=== PATIENT | male | born 1970 | race Caucasian/White ===

== ENCOUNTER 2020-04-11 11:44 | Inpatient (IN) | payer MEDICAID ==
[2020-04-11] VITALS (12 sets, daily range): BP systolic 87–109; BP diastolic 43–67
[~2020-04-11] VITALS: Ht 137.2 cm; Wt 46.7 kg
[2020-04-11] MEDS ORDERED: THIO10TA PO (12:15)
[2020-04-11] MEDS ORDERED: FURO20TA4 PO (12:15)
[2020-04-11] MEDS ORDERED: POTA10CA43 PO (12:15)
[2020-04-11 12:52] LABS: CREATININE 1.1 mg/dL (0.6-1.3); POTASSIUM 3.4 mmol/L (3.5-5.1)
--- NOTE | 2020-04-11 13:00 | NUR ---
MICHAEL GUTIERREZ, OF PT'BROTHER, SIGNED THE CONSENT FOR BLOOD TRANSFUSION, PT ALSO ACKNOWLEDGED THE CONSENT FOR BLOOD TRANSFUSION
[2020-04-11 13:12] LABS: BILIRUBIN,TOTAL 1.3 mg/dL (0.2-1.0); TOTAL PROTEIN, SERUM 6.6 g/dL (6.4-8.2)
--- NOTE | 2020-04-11 13:30 | NUR ---
PT HAD SEMI LOOSE LIGHT BROWN BM AT BEDSIDE COMMODE.
[2020-04-11 13:36] LABS: BASOPHILS # (AUTO) 0.1 K/uL (0.0-8.0); BASOPHILS % (AUTO) 3.5 % (0.0-2.0); EOSINOPHILS # (AUTO) 0.1 K/uL (0.0-0.7); EOSINOPHILS % (AUTO) 3.7 % (0.0-7.0); LYMPHOCYTES # (AUTO) 0.3 K/uL (20.0-40.0); MEAN CORPUSCULAR HEMOGLOBIN 15.6 uug (23.8-33.4); MEAN CORPUSCULAR HGB CONC 27 g/dL (32.5-36.3); MEAN CORPUSCULAR VOLUME 57.7 fL (73.0-96.2); MONOCYTES # (AUTO) 0.2 K/uL (2.0-10.0); MONOCYTES % (AUTO) 8.8 % (0.0-11.0); NEUTROPHILS # (AUTO) 1.4 K/uL (1.8-8.9); PLATELET COUNT (AUTO) 95 K/uL (152-348)
[2020-04-11 13:38] LABS: RED BLOOD CELL COUNT(AUTO) 2.14 MIL/uL (4.06-5.63)
[2020-04-11 13:39] LABS: HEMOGLOBIN 3.3 g/dL (12.5-16.3)
[2020-04-11 13:40] LABS: HEMATOCRIT 12.3 % (36.7-47.1)
--- NOTE | 2020-04-11 13:40 | NUR ---
PT JUST MENTIONED THAT HE HAD " LEMON SOME TIME AND BLED THROUGH MOUTH", MD NOTIFIED.
[2020-04-11] MEDS ORDERED: IV NORMAL SALINE 1000 ML BAG IV ONE (13:45)
[2020-04-11] MEDS ORDERED: CEFTRIAXONE 1 G in IV DEXTROSE 5% 50 ML IV ONE (13:45)
[2020-04-11] MEDS ORDERED: AZITHROMYCIN IV 500 MG in IV DEXTROSE 5% 250 ML IV ONE (13:45)
[2020-04-11] MEDS ORDERED: ASPIRIN 81 MG TAB.CHEW PO ONE (13:45)
[2020-04-11] MEDS ORDERED: PANTOPRAZOLE SODIUM 40 MG VIAL IV ONE (13:45)
[2020-04-11] MEDS ORDERED: AZITHROMYCIN 500MG/ D5W 250ML IVPB **ER PYXIS ONLY IV ONE (13:50)
[2020-04-11] MEDS ORDERED: CEFTRIAXONE /D5W 50ML IVPB **ER PYXIS IV ONE (13:50)
[2020-04-11] MEDS ORDERED: PANTOPRAZOLE SODIUM 40 MG VIAL ONE (13:54)
[2020-04-11 14:23] LABS: *BILIRUBIN,URIN NEGATIVE (NEGATIVE); *BLOOD, URINE 1+ (NEGATIVE); *CLARITY,URINE CLEAR (CLEAR); *COLOR,URINE YELLOW (YELLOW); *KETONES,URINE NEGATIVE (NEGATIVE); *UROBILINOGEN,URINE 0.2 E.U./dl (NORMAL); LEUKOCYTE ESTERASE ,URINE TRACE (NEGATIVE); NITRITE, URINE NEGATIVE (NEGATIVE); PH,URINE 5.5 (5.0-8.0); UGLUCOSE NEGATIVE (NEGATIVE)
--- NOTE | 2020-04-11 14:28 | NUR ---
CALLED ANIMAL IMPERSONATOR TO CALL FOR MIDLINE PLACEMENT PER MD ORDER.
--- NOTE | 2020-04-11 14:38 | NUR ---
telephone report received from Rob Garcia as stated pt. will be brought when ready.
[2020-04-11 14:52] LABS: *OCCULT BLOOD STOOL NEGATIVE (NEGATIVE)
--- NOTE | 2020-04-11 15:00 | NUR ---
transfered pt to ccu in stable condition with hospital covid 19 guidelines.
[2020-04-11] MEDS ORDERED: MORPHINE SULFATE 2 MG/1 ML DISP.SYRIN IV PRN (15:15)
[2020-04-11] MEDS ORDERED: ACETAMINOPHEN 650 MG SUPP.RECT RC PRN (15:15)
[2020-04-11] MEDS ORDERED: ONDANSETRON 4 MG/2 ML VIAL IV PRN (15:15)
--- NOTE | 2020-04-11 15:28 | NUR ---
Patient in from E.R. AAOx3-4 vitals stable no c/of pain. PIV to right hand G20 patent. Attending will be called to be notified. sbp of 107/62 hr of 102, and RR of 22. temp 97.2.
--- NOTE | 2020-04-11 15:39 | NUR ---
pt sister in law just showed a picture of this am bm with blood in it. md notified.
[2020-04-11] MEDS ORDERED: PANTOPRAZOLE SODIUM IV 80 MG in IV DEXTROSE 5% 100 ML IV ONE (16:00)
[2020-04-11] MEDS ORDERED: IV D5 1/2 NS 1000 ML 1,000 ML IV PRN (16:00)
[2020-04-11] MEDS ORDERED: Z GUARD REMEDY PASTE 57 GM TUBE TOP PRN (16:00)
[2020-04-11] MEDS ORDERED: PANTOPRAZOLE SODIUM IV 80 MG in IV DEXTROSE 5% 500 ML IV SCH (16:15)
[2020-04-11 16:22] LABS: BACTERIA,URINE FEW /HPF (NONE SEEN); RBC,URINE 0-3 /HPF (0-3); SQUAMOUS EPITHELIAL CELL,UR FEW /HPF (NONE SEEN)
--- NOTE | 2020-04-11 16:35 | NUR ---
PICC line R.N in the unit picc line insertio in progress.
[2020-04-11 16:56] LABS: BAND % (MANUAL) 2 % (0-10); NEUTROPHILS % (MANUAL) 74 % (42-75)
[2020-04-11 16:57] LABS: BASOPHILS % (MANUAL) 0 % (0-2); EOSINOPHILS % (MANUAL) 1 % (0-8); LYMPHOCYTES % (MANUAL) 17 % (20-40); MONOCYTES % (MANUAL) 6 % (2-10)
--- NOTE | 2020-04-11 17:20 | NUR ---
Picc line successfully inserted and ok to be used by Randa MEANS.
[2020-04-11] MEDS ORDERED: IV NORMAL SALINE 250 ML IV ONE (17:33)
[2020-04-11] MEDS ORDERED: IOHEXOL 350 100 ML INFUS..BTL ONE (17:33)
[2020-04-11] MEDS ORDERED: SWABABLE VALVE TRANSFER SET EA MC ONE (17:33)
[2020-04-11] MEDS: POTASSIUM CHLORIDE 10 MEQ in IV D5 1/2 NS 1000 ML 1,000 ML IV PRN (18:34)
--- NOTE | 2020-04-11 19:01 | NUR ---
As per pharmacy 1600 dose protonix not to be given.
--- NOTE | 2020-04-11 19:10 | NUR ---
Received patient in bed in supine position. He is awake, and alert and oriented. Patient is currently receiving a blood transfusion of RBCs. PICC line CLAYR. Abdul catheter draining clear yellow urine. 98-100% oxygen saturation on room air. Patient's blood pressure is low. Will address with .
[2020-04-11] MEDS ORDERED: PHENYLEPHRINE IV 100 MG in IV NORMAL SALINE 240 ML IV PRN (20:00)
--- NOTE | 2020-04-11 20:00 | NUR ---
Called Kirby Hernandez [facility] and requested an order for Phenylepherine due to the patient's systolic blood pressure <90 and MAP <60. He agreed to order of phenylepherine if needed. I also inquired about the need for additional units of blood. He ordered H&H 2 hours after completion of the transfusion of the current unit, and give 1 more unit if Hemoglobin is <7.
[2020-04-11] MEDS ORDERED: THIORIDAZINE 10 MG TABLET PO SCH (21:00)
[2020-04-11] MEDS: PANTOPRAZOLE SODIUM 40 MG VIAL IV SCH (21:23)
[2020-04-12] VITALS (29 sets, daily range): BP systolic 92–110; BP diastolic 46–63
--- NOTE | 2020-04-12 00:30 | NUR ---
First unit of blood completed @2230, no reactions noted, temperature 98.0. Hemoglobin redraw @0030 still critical @4.3g/dL. Will transfuse 1 more unit of pRBCs per physician order.
[2020-04-12 00:50] LABS: HEMATOCRIT 14.8 % (36.7-47.1); HEMOGLOBIN 4.3 g/dL (12.5-16.3)
--- NOTE | 2020-04-12 04:30 | NUR ---
Second unit of RBCs transfused, no signs of reaction, no elevated temperature. H&H will be repeated with AM labs.
[2020-04-12 06:47] LABS: BASOPHILS % (AUTO) 0.6 % (0.0-2.0); BILIRUBIN,TOTAL 2.3 mg/dL (0.2-1.0); CREATININE 0.9 mg/dL (0.6-1.3); EOSINOPHILS # (AUTO) 0.1 K/uL (0.0-0.7); EOSINOPHILS % (AUTO) 2.7 % (0.0-7.0); LYMPHOCYTES # (AUTO) 0.3 K/uL (20.0-40.0); LYMPHOCYTES % (AUTO) 10.7 % (20.5-51.5); MAGNESIUM 1.7 mg/dL (1.8-2.4); MEAN CORPUSCULAR HEMOGLOBIN 20.3 uug (23.8-33.4); MEAN CORPUSCULAR HGB CONC 30 g/dL (32.5-36.3); MEAN CORPUSCULAR VOLUME 66.9 fL (73.0-96.2); MONOCYTES # (AUTO) 0.2 K/uL (2.0-10.0); MONOCYTES % (AUTO) 6.9 % (0.0-11.0); NEUTROPHILS # (AUTO) 2.1 K/uL (1.8-8.9); NEUTROPHILS % (AUTO) 79.1 % (38.5-71.5); PHOSPHOROUS 3.1 mg/dL (2.5-4.9); PLATELET COUNT (AUTO) 70 K/uL (152-348); RED BLOOD CELL COUNT(AUTO) 2.65 MIL/uL (4.06-5.63); WHITE BLOOD COUNT (AUTO) 2.7 K/uL (3.6-10.2)
[2020-04-12 06:52] LABS: HEMATOCRIT 17.8 % (36.7-47.1); POTASSIUM 2.8 mmol/L (3.5-5.1)
[2020-04-12 06:54] LABS: HEMOGLOBIN 5.4 g/dL (12.5-16.3)
[2020-04-12 06:55] LABS: THYROID STIMULATING HORMONE 4.047 mIU/mL (0.358-3.740)
--- NOTE | 2020-04-12 07:10 | NUR ---
Received critical lab result for H&H and potassium @0655. Hemoglobin 5.4, hematocrit 17.8, Potassium 2.8. Endorsed these results to the next shift nurse. Patient remains stable. Blood pressure has remained stable in the 100s all night. Oxygen saturation 98-100 during shift. No complaints of pain, no fever.
[2020-04-12] MEDS ORDERED: POTASSIUM CHLORIDE 20 MEQ POWDER PACKET PO ONE (07:30)
[2020-04-12] MEDS: POTASSIUM CHLORIDE 50 ML IV SCH ×4 (07:50→09:57)
[2020-04-12] MEDS: PANTOPRAZOLE SODIUM 40 MG VIAL IV SCH ×2 (08:33→20:13)
[2020-04-12] MEDS ORDERED: FUROSEMIDE 20 MG TABLET PO SCH (09:00)
[2020-04-12] MEDS ORDERED: PANTOPRAZOLE SODIUM 40 MG VIAL IV SCH (09:00)
[2020-04-12] MEDS ORDERED: POTASSIUM CHLORIDE 10 MEQ TAB.PRT.SR PO SCH (09:00)
[2020-04-12] MEDS: FUROSEMIDE 20 MG/2 ML VIAL IV SCH (09:11)
[2020-04-12] MEDS: MAGNESIUM SULFATE/D5W 100 ML IV SCH ×2 (09:14→09:59)
[2020-04-12] MEDS ORDERED: LORAZEPAM 2 MG/1 ML VIAL IV PRN (11:15)
[2020-04-12] MEDS: CEFTRIAXONE 1 G in IV DEXTROSE 5% 50 ML IV SCH (12:13)
[2020-04-12] MEDS: HYDROCODONE BIT/HOMATROPINE 5 ML UDC PO PRN ×2 (12:23→21:06)
[2020-04-12] MEDS: POTASSIUM CHLORIDE 10 MEQ in IV D5 1/2 NS 1000 ML 1,000 ML IV PRN (14:58)
[2020-04-12 19:05] LABS: BAND % (MANUAL) 1 % (0-10); EOSINOPHILS % (MANUAL) 2 % (0-8); LYMPHOCYTES % (MANUAL) 6 % (20-40); MONOCYTES % (MANUAL) 3 % (2-10); NEUTROPHILS % (MANUAL) 88 % (42-75)
--- NOTE | 2020-04-12 19:30 | NUR ---
Report received patient CHUNG on COVID-19 isolation. AAO to name only, but follows commands fairly well. Assessment done. Turned and repositioned. Addendum: 04/12/20 at 2141 by ESTEFANI TRINH RN Amended: Links added.
[2020-04-13] VITALS (18 sets, daily range): BP systolic 94–109; BP diastolic 51–63
[2020-04-13 04:57] LABS: EOSINOPHILS # (AUTO) 0.1 K/uL (0.0-0.7); LYMPHOCYTES # (AUTO) 0.5 K/uL (20.0-40.0); MEAN CORPUSCULAR HEMOGLOBIN 21.9 uug (23.8-33.4); MONOCYTES # (AUTO) 0.2 K/uL (2.0-10.0); RED BLOOD CELL COUNT(AUTO) 3.23 MIL/uL (4.06-5.63)
[2020-04-13 04:59] LABS: BASOPHILS % (AUTO) 0.9 % (0.0-2.0); LYMPHOCYTES % (AUTO) 16.5 % (20.5-51.5); MEAN CORPUSCULAR HGB CONC 31 g/dL (32.5-36.3); MEAN CORPUSCULAR VOLUME 71.1 fL (73.0-96.2); MONOCYTES % (AUTO) 7.6 % (0.0-11.0); NEUTROPHILS # (AUTO) 1.9 K/uL (1.8-8.9); PLATELET COUNT (AUTO) 70 K/uL (152-348); WHITE BLOOD COUNT (AUTO) 2.7 K/uL (3.6-10.2)
[2020-04-13 05:09] LABS: BILIRUBIN,TOTAL 2.2 mg/dL (0.2-1.0); CREATININE 0.9 mg/dL (0.6-1.3); PHOSPHOROUS 2.7 mg/dL (2.5-4.9); POTASSIUM 3.2 mmol/L (3.5-5.1); TOTAL PROTEIN, SERUM 5.8 g/dL (6.4-8.2)
[2020-04-13] MEDS: HYDROCODONE BIT/HOMATROPINE 5 ML UDC PO PRN (05:29)
[2020-04-13 05:33] LABS: HEMOGLOBIN 7.1 g/dL (12.5-16.3)
--- NOTE | 2020-04-13 06:58 | NUR ---
VS stable. Slept well during the night. No acute distress. Addendum: 04/13/20 at 0659 by ESTEFANI TRINH RN Amended: Links added.
[2020-04-13] MEDS: PANTOPRAZOLE SODIUM 40 MG VIAL IV SCH ×2 (09:03→20:39)
[2020-04-13] MEDS: FUROSEMIDE 20 MG/2 ML VIAL IV SCH (09:03)
--- NOTE | 2020-04-13 09:30 | NUR ---
A call from pt's brother Mr. Jamari Morales and to be updated on his brothers care-plan.
[2020-04-13] MEDS ORDERED: POTASSIUM PHOSPHATE MM 7.5 MMOL in IV NORMAL SALINE 97.5 ML IV ONE (10:00)
[2020-04-13] MEDS: POTASSIUM CHLORIDE 10 MEQ in IV D5 1/2 NS 1000 ML 1,000 ML IV PRN (11:26)
[2020-04-13 12:22] LABS: EOSINOPHILS % (MANUAL) 3 % (0-8); LYMPHOCYTES % (MANUAL) 13 % (20-40); MONOCYTES % (MANUAL) 5 % (2-10); NEUTROPHILS % (MANUAL) 79 % (42-75)
--- NOTE | 2020-04-13 13:45 | NUR ---
Attending informed of pt's brother request.
--- NOTE | 2020-04-13 13:45 | NUR ---
A call from pt's brother Mr. Morales he was updated on pt's care plan and at this time he requested a call from attending physician, Mr. Morales was informed that attending physician will be informed of his request.
[2020-04-13] MEDS: CEFTRIAXONE 1 G in IV DEXTROSE 5% 50 ML IV SCH (14:40)
--- NOTE | 2020-04-13 18:00 | NUR ---
Nephrology services, in the unit to see and examine patient.
--- NOTE | 2020-04-13 18:15 | NUR ---
Telephone report given to Rob Houston as informed pt. will be tow picker by [facility] staff. Pt. will be going via bed, vitals stable afebrile.
--- NOTE | 2020-04-13 18:55 | NUR ---
patient taken up to room 314 by Rob Houston.
--- NOTE | 2020-04-13 20:00 | NUR ---
pt received into care, sitting up in bed, resting comfortably. Pt is alert/oriented x1 and, using the Reyna-Srinivasan measurement, has no pain or discomfort at this time. Pt has a CLARY PICC line running KcL in D5 1/2 NS at 50mL/hr. All safety, fall, and isolation precaution measures are in place. Call light and personal items are within reach at all times. Will continue to monitor and assess.
[2020-04-13] MEDS ORDERED: ACETAMINOPHEN 325 MG TABLET PO ONE (23:00)
[2020-04-13] MEDS ORDERED: diphenhydrAMINE 50 MG/1 ML VIAL IV ONE (23:00)
[2020-04-14] VITALS (16 sets, daily range): BP systolic 95–119; BP diastolic 54–70
--- NOTE | 2020-04-14 00:57 | NUR ---
Blood transfusion of RBCs started at 75mL/hr. T 98.5 BP 109/57 HR 93 RR 20 Oxygen 100% room air. Will continue to monitor and assess.
--- NOTE | 2020-04-14 01:12 | NUR ---
Monitoring of VS 15 min after beginning transfusion: T 98.3 BP 101/56 HR 89 RR 20 Oxygen 100% room air. Increased transfusion rate to 100mL/hr. Will continue to monitor and assess.
--- NOTE | 2020-04-14 01:27 | NUR ---
15 minute VS check following beginning of transfusion: T 98.0 BP 95/54 HR 88 RR 18 Oxygen 98% at room air. Increased transfusion rate to 125mL/hr. Will continue to monitor and assess.
--- NOTE | 2020-04-14 01:57 | NUR ---
30 min VS check following increase to 125mL/hr: T 97.9 BP 100/58 HR 89 RR 18 Oxygen 96% room air. Will continue to monitor and assess.
--- NOTE | 2020-04-14 02:32 | NUR ---
30 minute check: T 98.1 BP 99/54 HR 84 RR 18 Oxygen 97% room air. Will continue to monitor and assess.
--- NOTE | 2020-04-14 04:17 | NUR ---
Blood infused. Final VS: T 97.9 BP 101/57 HR 85 RR 18 Oxygen Saturation 98% at room air. Patient is stable and has no adverse side effects verbalized by patient or noticed/observed by this nurse. Will continue to monitor and assess.
--- NOTE | 2020-04-14 06:00 | NUR ---
Patient slept intermittently throughout night with no s/s of acute distress or discomfort noted or observed by this nurse. Packed RBCs were transfused successfully with no adverse side effects verbalized by patient or noted/observed by this nurse. CLARY triple lumen PICC has 2 patent lumens with KcL 10 mEq running at 50mL/hr. Fresh frozen plasma is ready to be picked up in lab and setup for transfusion is ready to be completed by next shift. VS are WNL and patient is stable. All nursing needs have been met and patient is warm, dry, and comfortable. All safety, fall, and isolation precautions remain in place. Call light and personal items are within reach at all times.
[2020-04-14 06:23] LABS: BASOPHILS # (AUTO) 0.1 K/uL (0.0-8.0); BASOPHILS % (AUTO) 2.4 % (0.0-2.0); EOSINOPHILS # (AUTO) 0.1 K/uL (0.0-0.7); EOSINOPHILS % (AUTO) 4.9 % (0.0-7.0); HEMATOCRIT 25.5 % (36.7-47.1); LYMPHOCYTES # (AUTO) 0.5 K/uL (20.0-40.0); LYMPHOCYTES % (AUTO) 22.6 % (20.5-51.5); MEAN CORPUSCULAR HEMOGLOBIN 23.4 uug (23.8-33.4); MEAN CORPUSCULAR HGB CONC 32 g/dL (32.5-36.3); MEAN CORPUSCULAR VOLUME 74.1 fL (73.0-96.2); MONOCYTES # (AUTO) 0.2 K/uL (2.0-10.0); MONOCYTES % (AUTO) 8.7 % (0.0-11.0); NEUTROPHILS # (AUTO) 1.5 K/uL (1.8-8.9); NEUTROPHILS % (AUTO) 61.4 % (38.5-71.5); PLATELET COUNT (AUTO) 68 K/uL (152-348); RED BLOOD CELL COUNT(AUTO) 3.44 MIL/uL (4.06-5.63); WHITE BLOOD COUNT (AUTO) 2.4 K/uL (3.6-10.2)
[2020-04-14 06:36] LABS: BILIRUBIN,TOTAL 1.7 mg/dL (0.2-1.0); MAGNESIUM 1.7 mg/dL (1.8-2.4); PHOSPHOROUS 3.5 mg/dL (2.5-4.9); POTASSIUM 2.9 mmol/L (3.5-5.1); TOTAL PROTEIN, SERUM 5.7 g/dL (6.4-8.2)
--- NOTE | 2020-04-14 07:45 | NUR ---
Patient in bed, awake and verbally responsive. No signs of distress noted. Afebrile. No complain of pain or discomfort. All needs attended. kept clean and comfortable.
[2020-04-14 08:47] LABS: *RHEUMATOID FACTOR SCREEN NEGATIVE (NEGATIVE)
[2020-04-14] MEDS: FOLIC ACID 1 MG TABLET PO SCH (09:02)
[2020-04-14] MEDS: PANTOPRAZOLE SODIUM 40 MG VIAL IV SCH ×2 (09:08→20:44)
[2020-04-14] MEDS: FUROSEMIDE 20 MG/2 ML VIAL IV SCH (09:20)
[2020-04-14] MEDS: POTASSIUM CHLORIDE 20 MEQ POWDER PACKET GT SCH ×3 (09:20→12:28)
[2020-04-14] MEDS: MAGNESIUM SULFATE/D5W 100 ML IV SCH ×2 (09:26→10:27)
--- NOTE | 2020-04-14 11:15 | NUR ---
FFP x 2 bags tolerated well. No ASE noted. Afebrile. Will continue to monitor.
[2020-04-14] MEDS: POTASSIUM CHLORIDE 10 MEQ in IV D5 1/2 NS 1000 ML 1,000 ML IV PRN (12:58)
[2020-04-14] MEDS: CEFTRIAXONE 1 G in IV DEXTROSE 5% 50 ML IV SCH (13:06)
--- NOTE | 2020-04-14 14:57 | NUR ---
paracentesis today was cancelled, will have schedule Paracentesis tomorrow 04/15/2020 at 0900, Dr. Juarez made aware.
--- NOTE | 2020-04-14 18:15 | NUR ---
Patient in bed, awake and responsive, farsi speaking. No signs of distress noted. No SOB. No complain of pain or discomfort. Magnesium 1.7 was replaced with Magnesium x 2 bags, potassium 2.9 was replaced with Kclor 20mq x 3 packet. FFP x 2 bags given, No ASE noted. Afebrile. kept clean and comfortable. Will endorse to Oncoming nurse.
--- NOTE | 2020-04-14 19:51 | NUR ---
Per MD order, this nurse d/c'd isolation d/t negative COVID-19 test results. Pt to be moved to non-isolation room.
--- NOTE | 2020-04-14 20:00 | NUR ---
Patient received into care, laying in bed, listening to music. Patient is alert/oriented x1 and has no pain according to the Reyna Srinivasan pain scale. Patient was moved by this nurse and EM Guzmán from room 316 to 314 successfully and this nurse educated pt on equipment in new room. All safety and fall precaution measures are in place. Call light and personal items are within reach at all times. Will continue to monitor and assess.
--- NOTE | 2020-04-14 20:50 | NUR ---
When checking patency of right hand IV cath, pt expressed pain with grimacing and moaning. This nurse removed IV cath and covered site with gauze. Pt tolerated procedure well.
[2020-04-15 04:00] VITALS: BP 103/58
--- NOTE | 2020-04-15 05:04 | NUR ---
Patient slept well throughout night with no s/s of acute distress or discomfort noted or observed by this nurse. Pt's CLARY triple lumen PICC has 2 patent lumens, with 1 lumen receiving IVF of KcL 10mEq D5 1/2 NS at 50mL/hr, which patient is tolerating well. Patient had a total output of 350mL this shift. All prescribed medications due this shift were provided as ordered and tolerated well by patient, with no adverse side effects verbalized by pt or noted/observed by this nurse. This nurse is unable to get an accurate weight from pt's bed after it was moved with pt from 314 to 304. Abdomen remains distended and taut with BLE +3 to +4 on legs and feet. All safety, fall, and fluid restrictions remain in place. Call light and personal items remain within reach.
[2020-04-15 06:17] LABS: CREATININE 0.8 mg/dL (0.6-1.3); MAGNESIUM 1.9 mg/dL (1.8-2.4)
[2020-04-15 07:06] LABS: HEPATITIS B SURFACE AB Non Reactive (.); HEPATITIS B SURFACE AG Negative (Negative)
--- NOTE | 2020-04-15 08:00 | NUR ---
Patient in bed, awake and verbally responsive. No signs of distress noted. No SOB. No complain of Pain or discomfort. patient has scheduled US Guided paracentesis today at 0930. Patient with potassium level of 2.7, Dr. Juarez is aware. kept clean and comfortable. Will continue to monitor.
[2020-04-15] MEDS: PANTOPRAZOLE SODIUM 40 MG VIAL IV SCH ×2 (08:13→20:30)
[2020-04-15] MEDS: FOLIC ACID 1 MG TABLET PO SCH (08:13)
[2020-04-15] MEDS: POTASSIUM CHLORIDE 10 MEQ in IV D5 1/2 NS 1000 ML 1,000 ML IV PRN (09:19)
[2020-04-15 09:56] LABS: POTASSIUM 2.8 mmol/L (3.5-5.1)
[2020-04-15] MEDS ORDERED: POTASSIUM CHLORIDE 20 MEQ POWDER PACKET GT ONE (10:00)
[2020-04-15] MEDS: POTASSIUM CHLORIDE 50 ML IV SCH ×4 (10:22→13:24)
[2020-04-15] MEDS: SPIRONOLACTONE 25 MG TABLET PO SCH (10:35)
--- NOTE | 2020-04-15 10:40 | NUR ---
patient with output of 3300L from paracentesis.
[2020-04-15 11:34] VITALS: BP 97/43
[2020-04-15] MEDS ORDERED: ALBUMIN HUMAN 25% 50 ML IV ONE (12:30)
[2020-04-15] MEDS: CEFTRIAXONE 1 G in IV DEXTROSE 5% 50 ML IV SCH (13:24)
[2020-04-15 16:00] VITALS: BP 96/51
[2020-04-15] MEDS: FUROSEMIDE 20 MG/2 ML VIAL IV SCH (16:54)
--- NOTE | 2020-04-15 17:56 | NUR ---
Patient is awake and verbally responsive. No signs of Distress noted. No SOB. No complain of pain or discomfort. US Guided Paracentesis was done with 3300L output. Potassium 2.7 was replaced with 4 bags KCL and Kclor 60meq. kept clean and comfortable. All needs attended and met. Will endorse to Oncoming Nurse.
--- NOTE | 2020-04-15 19:20 | NUR ---
Received patient lying in bed. AAOx1. In no acute distress. Denies any pain or SOB. PICC line on left upper arm intact and patent. Abdul catheter intact and draining via gravity. Safety measure initiated and call cook within reached.
[2020-04-15 20:25] VITALS: BP 93/49
[2020-04-16 05:19] VITALS: BP 95/51
--- NOTE | 2020-04-16 06:05 | NUR ---
Slept well lqst night. In no acute distress. No complain of pain or SOB. PICC line on left upper arm intact and patent. Abdul catheter intact and draining via gravity. Safety measure maintained and call cook within reached.
--- NOTE | 2020-04-16 08:00 | NUR ---
Received patient in bed awake and oriented to self. No sign of respiratory distress noted but patient does have a cough. He is saturating well on room air.Patient had a triple lumen IV on left upper arm. IV intact and patent with no signs of infiltration. No complaint of pain at this time. Safety measures implemented with bed in the lowest position , locked and alarm on. Call light and patient's belongings are within reach. Will continue to monitor.
[2020-04-16] MEDS: SPIRONOLACTONE 25 MG TABLET PO SCH (08:59)
[2020-04-16] MEDS: PANTOPRAZOLE SODIUM 40 MG VIAL IV SCH ×2 (08:59→21:11)
[2020-04-16] MEDS: FOLIC ACID 1 MG TABLET PO SCH (08:59)
--- NOTE | 2020-04-16 09:13 | NUR ---
Patient dose of lasix held because of decreased blood pressure. First attempt waa 92/48 and second attempt yielded result of 91/49. Will recheck later and reevaluate.
[2020-04-16] MEDS: FUROSEMIDE 20 MG/2 ML VIAL IV SCH ×2 (09:53→16:46)
[2020-04-16 11:53] VITALS: BP 105/65
[2020-04-16] MEDS: CEFTRIAXONE 1 G in IV DEXTROSE 5% 50 ML IV SCH (12:06)
[2020-04-16 16:00] VITALS: BP 99/57
--- NOTE | 2020-04-16 18:32 | NUR ---
Patient resting comfortably in bed with no sign of distress. Patient is saturating well on room air. IV on left upper arm triple lumen is patent and intact. Safety precautions implemented, bed in lowest positions, locked with alarms on and all light and patient's belongings are within reach. Will endorse to the oncoming shift.
[2020-04-16 20:03] VITALS: BP 102/57
[2020-04-16] MEDS: HYDROCODONE BIT/HOMATROPINE 5 ML UDC PO PRN (21:11)
--- NOTE | 2020-04-16 21:19 | NUR ---
pain was coughing and attempted to administer hydromet. patient refused despite education.
[2020-04-17 04:50] VITALS: BP 88/44
--- NOTE | 2020-04-17 05:06 | NUR ---
PATIENT AAOX1. V/S STABLE AND NO SIGNS OF ACUTE DISTRESS NOTED THROUGHOUT SHIFT. SAT AT 98% RA. MONTES DE OCA INTACT AND PATENT DRAINING VIA GRAVITY. CENTRAL LINE TRIPLE LUMEN ON CLARY INTACT AND PATENT AND FLUSHED ON MY SHIFT. SAFETY MEASURES IN PLACE. NEEDS ATTENDED TO. ALL MEDICATIONS ADMINISTERED WITHOUT ASE. REFUSED HYDROMET AT BEGINNING OF SHIFT WHEN ATTEMPTING TO ADMINISTER DUE TO COUGH. WASTED. WILL CONTINUE TO ASSESS AND MONITOR.
--- NOTE | 2020-04-17 05:45 | NUR ---
dr. malik hart contacted regarding patient BP at 80/44 all other v/s WNL. orders placed for Bolus NS 500ml to administer now. will follow up.
[2020-04-17] MEDS ORDERED: IV NORMAL SALINE 500 ML BAG IV ONE (06:00)
--- NOTE | 2020-04-17 07:17 | NUR ---
bolus administering right now. will endorse to morning nurse to complete bolus NS 500ml.
--- NOTE | 2020-04-17 08:20 | NUR ---
Received patient laying in bed. no sign of respiratory distress noted at this time, saturating well on room air. Left upper arm triple lumen IV is patent and intact. Safety precautions implemented, bed alarm on locked and in the lowest position with call lights and belongings within reach. patient had a bowel movement accident on the floor so reinforced call light teaching with the patient. Will continue to monitor.
[2020-04-17] MEDS: SPIRONOLACTONE 25 MG TABLET PO SCH (08:59)
[2020-04-17] MEDS: PANTOPRAZOLE SODIUM 40 MG VIAL IV SCH ×2 (08:59→20:04)
[2020-04-17] MEDS: FOLIC ACID 1 MG TABLET PO SCH (08:59)
[2020-04-17] MEDS: FUROSEMIDE 20 MG/2 ML VIAL IV SCH ×2 (08:59→17:00)
[2020-04-17 09:48] LABS: BILIRUBIN,TOTAL 0.9 mg/dL (0.2-1.0); CREATININE 0.9 mg/dL (0.6-1.3); POTASSIUM 3.1 mmol/L (3.5-5.1); TOTAL PROTEIN, SERUM 5.7 g/dL (6.4-8.2)
[2020-04-17 09:58] LABS: EOSINOPHILS # (AUTO) 0.1 K/uL (0.0-0.7); HEMATOCRIT 26.9 % (36.7-47.1); HEMOGLOBIN 8.4 g/dL (12.5-16.3); LYMPHOCYTES # (AUTO) 0.4 K/uL (20.0-40.0); MEAN CORPUSCULAR HEMOGLOBIN 23.4 uug (23.8-33.4); MEAN CORPUSCULAR HGB CONC 31 g/dL (32.5-36.3); MONOCYTES # (AUTO) 0.1 K/uL (2.0-10.0); NEUTROPHILS # (AUTO) 1.3 K/uL (1.8-8.9)
[2020-04-17 10:00] LABS: BASOPHILS % (AUTO) 1.7 % (0.0-2.0); EOSINOPHILS % (AUTO) 4.7 % (0.0-7.0); LYMPHOCYTES % (AUTO) 19.6 % (20.5-51.5); MEAN CORPUSCULAR VOLUME 75.3 fL (73.0-96.2); MONOCYTES % (AUTO) 7.9 % (0.0-11.0); NEUTROPHILS % (AUTO) 66.1 % (38.5-71.5); PLATELET COUNT (AUTO) 69 K/uL (152-348); RED BLOOD CELL COUNT(AUTO) 3.58 MIL/uL (4.06-5.63)
[2020-04-17 10:06] LABS: WHITE BLOOD COUNT (AUTO) 1.9 K/uL (3.6-10.2)
--- NOTE | 2020-04-17 10:08 | NUR ---
critical lab value of wbc at 1.9. will endorse to doctor taking care of pt.
--- NOTE | 2020-04-17 10:24 | NUR ---
Dr. Singh aware of critical lab value of WBC at 1.9. No new orders at this time.
[2020-04-17 11:00] VITALS: BP 98/51
[2020-04-17] MEDS ORDERED: POTASSIUM CHLORIDE 20 MEQ TAB.PRT.SR PO ONE (11:45)
[2020-04-17] MEDS: CEFTRIAXONE 1 G in IV DEXTROSE 5% 50 ML IV SCH (12:32)
[2020-04-17] MEDS: HYDROCODONE BIT/HOMATROPINE 5 ML UDC PO PRN (13:46)
[2020-04-17 15:53] LABS: EOSINOPHILS % (MANUAL) 3 % (0-8); LYMPHOCYTES % (MANUAL) 20 % (20-40); MONOCYTES % (MANUAL) 5 % (2-10); NEUTROPHILS % (MANUAL) 72 % (42-75)
[2020-04-17 16:00] VITALS: BP 93/52
--- NOTE | 2020-04-17 17:00 | NUR ---
Medication not administered because of decreased blood pressure. Patient's BP was 87/37 and the retake was 93/52.Will continue to monitor.
--- NOTE | 2020-04-17 18:24 | NUR ---
Patient is resting comfortably in bed. No signs of respiratory distress noted at time, patient is saturating well on room air. Held lasix because patients blood pressure was decreased. Safety precautions in place bed in lowest position and locked with alarm activated and call light and belongings are within read. Will endorse to oncoming nurse
--- NOTE | 2020-04-17 19:30 | NUR ---
Received patient in bed, awake, AAOx1-2. Patient has no s/s of acute distress or pain at this time. Patient's blood pressure is 92/86
--- NOTE | 2020-04-17 19:30 | NUR ---
Received patient in bed, awake. AAOx1-2. Patient has no s/s of acute distress or pain at this time. Patient is on room air saturating WNL. Patient's blood pressure is 92/56. Patient has a CLARY triple lumen cath, all intact and patent. Patient on taylor and draining clear eliecer urine. Safety measures in place. Bed low and locked in position. Call light within reach. Will continue with the plan of care.
[2020-04-17 20:44] VITALS: BP 92/56
[2020-04-18 05:13] VITALS: BP 87/51
--- NOTE | 2020-04-18 05:17 | NUR ---
BP is 87/51. Dr. Sosa is aware. Will continue to monitor.
[2020-04-18 06:29] VITALS: BP 92/51
[2020-04-18 06:56] LABS: BASOPHILS # (AUTO) 0.1 K/uL (0.0-8.0); EOSINOPHILS # (AUTO) 0.1 K/uL (0.0-0.7); EOSINOPHILS % (AUTO) 5.4 % (0.0-7.0); LYMPHOCYTES # (AUTO) 0.5 K/uL (20.0-40.0); MEAN CORPUSCULAR HEMOGLOBIN 23.3 uug (23.8-33.4); MEAN CORPUSCULAR HGB CONC 31 g/dL (32.5-36.3); MEAN CORPUSCULAR VOLUME 75.4 fL (73.0-96.2); MONOCYTES # (AUTO) 0.1 K/uL (2.0-10.0); MONOCYTES % (AUTO) 7.6 % (0.0-11.0); PLATELET COUNT (AUTO) 61 K/uL (152-348); RED BLOOD CELL COUNT(AUTO) 3.44 MIL/uL (4.06-5.63)
--- NOTE | 2020-04-18 06:56 | NUR ---
Patient slept intermittently throughout the night. Patient is awake and has no s/s of SOB or chest pain at this time. CLARY triple lumen cath is intact and patent. Patient's BP is 92/51 all other VS stable. Pt is afebrile. Abdul is intact and patent, draining yellow eliecer urine. Comfort care and needs attended. Repositioned for comfort. Fall and neutropenic precautions maintained. Safety measures in place. Bed low and locked in position. Call light within reach. Will endorse to the oncoming nurse accordingly.
[2020-04-18 07:16] LABS: WHITE BLOOD COUNT (AUTO) 1.8 K/uL (3.6-10.2)
[2020-04-18 07:20] LABS: BILIRUBIN,TOTAL 0.9 mg/dL (0.2-1.0); CREATININE 0.9 mg/dL (0.6-1.3); POTASSIUM 3.2 mmol/L (3.5-5.1); TOTAL PROTEIN, SERUM 5.8 g/dL (6.4-8.2)
[2020-04-18] MEDS: FOLIC ACID 1 MG TABLET PO SCH (08:31)
[2020-04-18] MEDS: PANTOPRAZOLE SODIUM 40 MG VIAL IV SCH ×2 (08:32→21:24)
[2020-04-18] MEDS: SPIRONOLACTONE 25 MG TABLET PO SCH (08:32)
[2020-04-18] MEDS: FUROSEMIDE 20 MG/2 ML VIAL IV SCH (08:32)
[2020-04-18 11:43] VITALS: BP 90/53
[2020-04-18] MEDS: POTASSIUM CHLORIDE 20 MEQ TAB.PRT.SR PO SCH ×2 (12:05→13:08)
--- NOTE | 2020-04-18 14:25 | NUR ---
Pt received, assessed, no acute distress or SOB noted. Pt complaint with medication administration but refusing therapies. Pt family updated via phone. VSS. Pt repositioned for comfort. CLRAY Triple lumen flushed, intact, and patent. Abdul catheter in place, draining clear yellow urine. All comfort needs attended to throughout shift. Fall and safety precautions in place. Call light and personal items placed within reach. Will continue to monitor.
[2020-04-18 15:57] VITALS: BP 101/55
[2020-04-18 20:00] VITALS: BP 101/50
--- NOTE | 2020-04-18 20:00 | NUR ---
Received patient awake. Patient shows no signs or symptoms of distress at this time. Vital signs stable. Bed set to lowest position. Call light within reach. Side rails x2 are up. Will continue to monitor patient.
--- NOTE | 2020-04-18 22:01 | NUR ---
Called and spoke to Missy from lab to follow up with results of Cytology of ascites fluid that was sent out. Lab to call back to find out what happened to the fluid.
--- NOTE | 2020-04-18 22:15 | NUR ---
Received call from lab. Lab will conduct investigation with [place] regarding ascites fluid cytology. Lab to call in AM after investigation is completed.
--- NOTE | 2020-04-19 04:44 | NUR ---
Pt refuses to have vital signs taken at this time. Patient does not appear to be in any distress at this time. Pt states, "I just want to sleep." Will continue to monitor patient.
[2020-04-19 05:00] VITALS: BP 114/53
[2020-04-19 06:45] LABS: BILIRUBIN,TOTAL 1.1 mg/dL (0.2-1.0); CREATININE 0.8 mg/dL (0.6-1.3); POTASSIUM 3.7 mmol/L (3.5-5.1); TOTAL PROTEIN, SERUM 5.7 g/dL (6.4-8.2)
[2020-04-19 06:49] LABS: BASOPHILS % (AUTO) 2.5 % (0.0-2.0); EOSINOPHILS # (AUTO) 0.1 K/uL (0.0-0.7); EOSINOPHILS % (AUTO) 4.9 % (0.0-7.0); HEMOGLOBIN 7.9 g/dL (12.5-16.3); LYMPHOCYTES # (AUTO) 0.4 K/uL (20.0-40.0); LYMPHOCYTES % (AUTO) 25.3 % (20.5-51.5); MEAN CORPUSCULAR HEMOGLOBIN 23.5 uug (23.8-33.4); MEAN CORPUSCULAR HGB CONC 32 g/dL (32.5-36.3); MEAN CORPUSCULAR VOLUME 74.3 fL (73.0-96.2); MONOCYTES # (AUTO) 0.1 K/uL (2.0-10.0); MONOCYTES % (AUTO) 7.1 % (0.0-11.0); NEUTROPHILS % (AUTO) 60.2 % (38.5-71.5); PLATELET COUNT (AUTO) 55 K/uL (152-348); RED BLOOD CELL COUNT(AUTO) 3.37 MIL/uL (4.06-5.63)
[2020-04-19 06:52] LABS: WHITE BLOOD COUNT (AUTO) 1.6 K/uL (3.6-10.2)
[2020-04-19 07:09] LABS: *BILIRUBIN,URIN NEGATIVE (NEGATIVE); *BLOOD, URINE 1+ (NEGATIVE); *CLARITY,URINE CLEAR (CLEAR); *COLOR,URINE YELLOW (YELLOW); *KETONES,URINE NEGATIVE (NEGATIVE); *UROBILINOGEN,URINE 0.2 E.U./dl (NORMAL); LEUKOCYTE ESTERASE ,URINE TRACE (NEGATIVE); NITRITE, URINE NEGATIVE (NEGATIVE); PH,URINE 8.5 (5.0-8.0); UGLUCOSE NEGATIVE (NEGATIVE)
--- NOTE | 2020-04-19 08:00 | NUR ---
RECEIVED PATIENT IN BED AWAKE ALERT COOPERATIVE AND COMPLIANT ON ROOM AIR WITH NO SOB AT THIS TIME PICC LINE TRIPLE LUMEN INTACT FLUSHED PER PROTOCOL PATIENT IS ALERT VERBALLY RESPONDS HE IS SLOW BUT UNDERSTANDABLE MONTES DE OCA CATH IS INTACT WITH NO HEMATURIA DENIES CHEST PAIN NO DISTRESS AT THIS TIME
[2020-04-19] MEDS: FOLIC ACID 1 MG TABLET PO SCH (08:24)
[2020-04-19] MEDS: SPIRONOLACTONE 25 MG TABLET PO SCH (08:24)
[2020-04-19] MEDS: PANTOPRAZOLE SODIUM 40 MG VIAL IV SCH ×2 (08:24→20:19)
[2020-04-19 08:33] LABS: A/G RATIO 0.7 (0.7-1.7); ALBUMIN 2.3 g/dL (2.9-4.4); ALPHA-1-GLOBULIN 0.3 g/dL (0.0-0.4); ALPHA-2-GLOBULIN 0.5 g/dL (0.4-1.0); BETA GLOBULIN 0.8 g/dL (0.7-1.3); GAMMA GLOBULIN 1.6 g/dL (0.4-1.8); GLOBULIN, TOTAL 3.2 g/dL (2.2-3.9); M-SPIKE 0.6 g/dL (Not Observed)
--- NOTE | 2020-04-19 10:13 | NUR ---
NEW ORDER NOTED FROM DR HUTTON FOR DISCHARGE BUT PATIENT HAS A BIOPSY SCHEDULED FOR TODAY AWAITING FOR DR GA TO COMPLETE THE BIOPSY PRIOR TO DISCHARGE
[2020-04-19 11:30] VITALS: BP 94/48
[2020-04-19 11:57] LABS: BACTERIA,URINE FEW /HPF (NONE SEEN); SQUAMOUS EPITHELIAL CELL,UR FEW /HPF (NONE SEEN)
--- NOTE | 2020-04-19 12:30 | NUR ---
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
[2020-04-19 12:38] LABS: EOSINOPHILS % (MANUAL) 5 % (0-8); LYMPHOCYTES % (MANUAL) 17 % (20-40); MONOCYTES % (MANUAL) 8 % (2-10)
[2020-04-19 12:42] LABS: NEUTROPHILS % (MANUAL) 70 % (42-75)
--- NOTE | 2020-04-19 14:30 | NUR ---
CALL RECEIVED FROM DR GA STATED THAT HE HAS BEEN CALLING LAMBERTO PATIENTS BROTHER 2 TIMES AND LEFT MESSAGES BUT HE HAS NOT RETURNED ANY OF HER CALL SO I WENT AHEAD AND CALLED LAMBERTO AT THE NUMBER THAT HE PROVIDED ME [phone] BUT I WAS UNABLE TO GET THROUGH THE PHONE IS RINGING BUSY SO I CALLED THE OTHER NUMBER ON THE FACE SHEET SPOKE WITH OLIVIA AND HE STATED THAT THIS IS THE OFFICE WHERE LAMBERTO WORKS AND HE WILL TRY TO FIND A WAY TO GIVE HIM THE MESSAGE HE IS NOT AT WORK TODAY.
[2020-04-19 15:41] VITALS: BP 89/49
[2020-04-19] MEDS ORDERED: LIDOCAINE HCL 1% 20 ML VIAL IJ PRN (16:45)
--- NOTE | 2020-04-19 17:56 | NUR ---
CALL RECEIVED FROM LAMBERTO STATED ZACHARY HE JUST RECEIVED THE MESSAGE FROM DR GA WANTFredy UPDATE SO I INFORMED HIM THAT HE NEEDS TO CALL DR GA AND LET HER KNOW THAT HE IS WILLING TO GIVE CONSCENT FOR THIS PROCEDURE AND THAT HE SHOULD CALL US BACK FOR A WITHNESSED TELEPHONE CONSCENT AND I GAVE HIM DR NELSON PHONE NUMBER HE WILL CALL DR GA.
--- NOTE | 2020-04-19 18:00 | NUR ---
CALL RECEIVED FROM YENI ORANTES PATIENTS BROTHER AND HE GAVE CONSCENT OVER THE PHONE FOR THE BONE BIOPSY AWAITING FOR DR GA
--- NOTE | 2020-04-19 18:45 | NUR ---
CALLED AND NOTED DR GA RE PATIENTS BROTHER DID CALL BACK AND GAVE CONSCENT AND WANDERING WHEN SHE WAS COMING SHE STATED MOST LIKELY TOMORROW MORNING BECAUSE THE CONSCENT WAS OBTAINED LATE AND SHE HAS MANY THINGS TO DO TONITE ENDORSED.
--- NOTE | 2020-04-19 19:45 | NUR ---
Received patient in bed, awake, no s/s of distress at time, picc line on left upper arm 3 lumen patent and intact.Abdul catheter fr 16/[address] draining well with clear yellow output,denies any chest pain at this time, call light with in reach ,bed in lowest position,side rails x2 up, will continue to monitor patient.
[2020-04-19 20:00] VITALS: BP 109/50
[2020-04-20 04:00] VITALS: BP 109/51
--- NOTE | 2020-04-20 05:00 | NUR ---
Removed taylor catheter,pt. tolerated well.no s/s of distress , will continue to monitor.
--- NOTE | 2020-04-20 06:09 | NUR ---
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 Will endorse patient to day shift morning nurse in stable condition.
--- NOTE | 2020-04-20 07:30 | NUR ---
Received patient in bed alert and awake, only oriented to self. No sign of respiratory distress noted at this time, patient is saturating well on room air. Triple lumen left upper arm IV hep lock patent and intact, flushed with saline flush. No complaint of pain at this time. safety measures in place, bed in lowest position, locked with alarm activated, call light and belongings are within reach. Will continue to observe and monitor.
[2020-04-20] MEDS: FOLIC ACID 1 MG TABLET PO SCH (08:05)
[2020-04-20 08:06] LABS: *IMMUNOGLOBULIN G, SERUM 1561 mg/dL (603-1613); IMMUNOGLOBULIN A, SERUM 497 mg/dL (90-386); IMMUNOGLOBULIN M, SERUM 68 mg/dL (20-172)
[2020-04-20] MEDS: PANTOPRAZOLE SODIUM 40 MG VIAL IV SCH (08:06)
[2020-04-20] MEDS: SPIRONOLACTONE 25 MG TABLET PO SCH (08:06)
--- NOTE | 2020-04-20 08:30 | NUR ---
Patient was able to ambulate to the bathroom with assist and voided in the toilet Addendum: 04/20/20 at 1104 by LUPE BROWER RN Patient stated in the morning that he voided, but upon further assessment and investigation, the conclusion is that the patient has not ordered. Addendum: 04/20/20 at 1221 by LUPE BROWER RN Patient stated in the morning that hr voided, but upon further assessment and investigation, the conclusion is that the patient has not voided.
--- NOTE | 2020-04-20 11:30 | NUR ---
upon further assessment noted that patient has not voided, since morning, however patient denied discomfort upon light palpation, per dr chand, continue to monitor,
--- NOTE | 2020-04-20 11:42 | NUR ---
Made Dr Lozoya aware that the patient has not been able to void. MD wants me to continue to monitor patient to see if he voids. Unable to assess for distention of the bladder because the abdomen is so taut and distended. Will continue to monitor
[2020-04-20 12:00] VITALS: BP 98/57
--- NOTE | 2020-04-20 12:13 | NUR ---
bladder scan performed with result of 675ml, per dr Crocker continue to monitor, patient denied any discomfort Addendum: 04/20/20 at 1216 by SARAY RODAS RN, RN patient denied any discomfort upon light palpation, no distress noted
--- NOTE | 2020-04-20 13:00 | NUR ---
Per Dr Singh orders, it is okay to give patient 2mg of morphine and 0.5 mg of Lorazepam concurrently. Medications were give immediately prior to the start of the procedure. Will follow up with assessment of the patient. Will continue to monitor.
--- NOTE | 2020-04-20 13:53 | NUR ---
Upon reassessment the patient was stable vital signs within normal limit with saturation at 97% on room air, blood pressure 111/61 and heart rate 98. Will continue to monitor
[2020-04-20 16:00] VITALS: BP 101/57
--- NOTE | 2020-04-20 17:37 | NUR ---
tried with patient multiple times, brought to the toilet, running water, patient is not able to void, per dr chand insert taylor cathere, and patient can go home with homehealth, patient and patient's brother refused to insert catheter and patient brother stated he does not want patient to go home with taylor catheter. charge nurse on duty made aware. continue to monitor patient, no distress noted at this time, patient tolerated bone marrow biopsy well, no active bleeding noted, denied pain, tolerated meals well.
--- NOTE | 2020-04-20 18:09 | NUR ---
Patient is resting in bed with no signs of distress. He still has not been able to void despite efforts to help him go. MD made aware. Patients bother refused a taylor insertion. Will do a straight cath to help eliminate bladder. Will continue to monitor.
--- NOTE | 2020-04-20 18:13 | NUR ---
per dr chand, perform In and Out catheter and discharge patient today
--- NOTE | 2020-04-20 18:38 | NUR ---
In and out straight cath only produces 400 mls of urine. Patient tolerated procedure well Patient will be discharges home, picked up by his brother. Will endorse to oncoming nurse.
--- NOTE | 2020-04-20 18:38 | NUR ---
straight cath performed 400ml out put, patient discharging home with his brother, alert, awake, no sob, resp even nonlabored,skin warm and dry to touch, no distress noted, instructions given to patient's bother, regarding current medications, and to monitor for urination, follow up with primary doctor, patient brother verbalized understanding of it.
--- NOTE | 2020-04-20 18:52 | NUR ---
PICC line discontinued as ordered by , ID removed. belongings list accounted and signed.
--- NOTE | 2020-04-20 19:56 | NUR ---
Patient discharged back home. Picked up by brother Zabrina. Discharge instructions and belongings brought with patient Wheeled patient down, patient left in stable condition. Vitals WNL.
[2020-04-24 13:06] LABS: *ANTI-SCLERODERMA-70 AB <0.2 AI (0.0-0.9); *SJOGREN'S ANTI-SS-A <0.2 AI (0.0-0.9); *SJOGREN'S ANTI-SS-B <0.2 AI (0.0-0.9); *SMITH ANTIBODIES <0.2 AI (0.0-0.9); ANTI-DNA(DS) AB, QN <1 IU/mL (0-9)
== END 2020-04-20 19:30 | disposition home or self-care (01) | DRG 720 ==
LOC: ER 11:44 → CCU 14:49 → TELE3 04-13 20:11 → MEDSURG3 04-14 18:28
PROVIDERS: ADMIT Nurse Practitioner Acute Care; ATTEND Internal Medicine
PROC: 30233N1 Transfusion of Nonautologous Red Blood Cells into Peripheral Vein, Percutaneous Approach (ICD-10-PCS; principal; 2020-04-11)
PROC: B548ZZA Ultrasonography of Superior Vena Cava, Guidance (ICD-10-PCS; principal; 2020-04-11)
PROC: 02HV33Z Insertion of Infusion Device into Superior Vena Cava, Percutaneous Approach (ICD-10-PCS; principal; 2020-04-11)
PROC: 30233K1 Transfusion of Nonautologous Frozen Plasma into Peripheral Vein, Percutaneous Approach (ICD-10-PCS; 2020-04-14)
PROC: 0W9G3ZZ Drainage of Peritoneal Cavity, Percutaneous Approach (ICD-10-PCS; 2020-04-15)
PROC: 07DR3ZX Extraction of Iliac Bone Marrow, Percutaneous Approach, Diagnostic (ICD-10-PCS; 2020-04-20)
DX: A41.9 Sepsis, unspecified organism (principal); N39.0 Urinary tract infection, site not specified; K92.2 Gastrointestinal hemorrhage, unspecified; D61.818 Other pancytopenia; D62 Acute posthemorrhagic anemia; G92 Toxic encephalopathy; E43 Unspecified severe protein-calorie malnutrition; R18.8 Other ascites; E87.2 Acidosis; R73.9 Hyperglycemia, unspecified; E88.09 Other disorders of plasma-protein metabolism, not elsewhere classified; D68.69 Other thrombophilia; D50.9 Iron deficiency anemia, unspecified; E83.42 Hypomagnesemia; E87.6 Hypokalemia; I86.1 Scrotal varices; D73.1 Hypersplenism; K74.60 Unspecified cirrhosis of liver; K80.20 Calculus of gallbladder without cholecystitis without obstruction; B96.89 Other specified bacterial agents as the cause of diseases classified elsewhere; I07.1 Rheumatic tricuspid insufficiency; J90 Pleural effusion, not elsewhere classified; I11.0 Hypertensive heart disease with heart failure; I50.32 Chronic diastolic (congestive) heart failure; R73.03 Prediabetes; Z68.24 Body mass index [BMI] 24.0-24.9, adult; I85.00 Esophageal varices without bleeding; F20.9 Schizophrenia, unspecified
CPT/HCPCS: 36415; 70030-TC; 71045; 71275; 76705; 82105; 82378; 82784; 83550; 83605; 83615; 83735; 84100; 84153; 84155; 84165; 84443; 85018; 85025; 85610; 85651; 85730; 86038; 86140; 86334; 86430; 86706; 86803; 86850; 86900; 86901; 86920; 87040; 87077; 87086; 87340; 87806; 93005; 93307; A4663; C1758; C9113; G0378; J0456; J0696; J1200; J1940; J2060; J2270; J2370; J3475; J3480; J3490; J7040; J7050; J7060; P9016-BL; P9017-BL; P9021; P9047; Q9967; U0003-CS